=== PATIENT | male | born 1990 | race African-American/Black ===

== ENCOUNTER 2019-03-22 18:14 | Emergency (ER) | payer MEDICAID ==
[~2019-03-22] VITALS: Ht 170.2 cm; Wt 81.6 kg
[2019-03-22] MEDS ORDERED: ALBUTEROL2.5 MG/3 M INH (18:22)
[2019-03-22 18:41] VITALS: BP 118/74
[2019-03-22] MEDS ORDERED: PENICILLIN V P500 MG PO (18:52)
--- NOTE | 2019-03-22 18:52 | Emergency Room Report ---
History of Present Illness General Chief Complaint: Toothache Source: Patient Present Illness HPI 28-year-old male presents with left tooth pain, bottom back molar aggravated with eating alleviated with rest, severity is mild, patient has any fevers chills, he states he has not seen a dentist, he states he smokes as well patient presents for evaluation Allergies: Coded Allergies: No Known Allergies (Unverified , 03/22/19) Patient History Past Medical History: see triage record Social History: Reports: smoking Reviewed Nursing Documentation: PMH: Agreed; PSxH: Agreed Nursing Documentation-PMH Hx Asthma: Yes Review of Systems All Other Systems: negative except mentioned in HPI Physical Exam Vital Signs Date Time Temp Pulse Resp B/P (MAP) Pulse Ox O2 Delivery O2 Flow Rate FiO2 03/22/19 18:19 99.1 99 16 118/74 (89) 96 Room Air General Appearance: well appearing, no apparent distress Head: normocephalic, atraumatic Eyes: bilateral eye PERRL, bilateral eye EOMI ENT: hearing grossly normal, normal voice, moist mucus membranes, other - Left back molar, possibly infected, mild swelling around the gum, patient with poor dentition, no focal abscess Neck: full range of motion, supple Respiratory: no respiratory distress, speaking full sentences Neurologic: alert, normal gait Psychiatric: mood/affect normal Skin: no rash Medical Decision Making Diagnostic Impression: Primary Impression: Dental caries ER Course 28-year-old male presents with left molar pain, differential diagnosis includes abscess, dental carry, gingivitis Counseled patient that he needs to follow-up with a dentist, will start antibiotics here disposition home with return precautions Last Vital Signs Date Time Temp Pulse Resp B/P (MAP) Pulse Ox O2 Delivery O2 Flow Rate FiO2 03/22/19 18:41 99.1 16 118/74 96 Room Air 03/22/19 18:19 99 Disposition: HOME, SELF-CARE Condition: Stable Scripts Penicillin V Potassium* (PENVK*) 500 Mg Tablet 500 MG PO Q6H, #28 TAB 0 Refills Prov: Jose Ramon Vaz MD 03/22/19 Referrals: [facility] Patient Instructions: Dental Care and Dentist Visits, Dental Caries, Easy-to- Read Additional Instructions: The patient was provided with discharge instructions, notified to follow-up with a primary care doctor and or specialist in the next 24-48 hours, and to return to the ED if they have worsening of their symptoms. Please note that this report is being documented using [employer] technology. This can lead to erroneous entry secondary to incorrect interpretation by the dictating instrument. FOLLOW-UP WITH DENTIST Jose Ramon Zarate MD Mar 22, 2019 18:52
[2019-03-22 19:00] VITALS: BP 118/74
== END 2019-03-22 19:00 | disposition home or self-care (01) ==
LOC: EMR 19:00
DX: K02.9 Dental caries, unspecified (principal); J45.909 Unspecified asthma, uncomplicated
CPT/HCPCS: 99282

== ENCOUNTER 2019-05-01 20:25 | Emergency (ER) | payer MEDICAID ==
[~2019-05-01] VITALS: Ht 170.2 cm; Wt 90.7 kg
[~2019-05-01 20:25] MED LIST: ALBUTEROL2.5 MG/3 M INH; PENICILLIN V P500 MG PO
[2019-05-01 20:33] VITALS: BP 140/60
--- NOTE | 2019-05-01 20:33 | NUR ---
ED Nurse Note: pt walked in to ED for C/o sore throat x 1 week with productive cough with brownish sputum.
[2019-05-01] MEDS ORDERED: PREDNISONE20 MG ORAL (21:08)
[2019-05-01] MEDS ORDERED: IBUPROFEN600 MG ORAL (21:08)
[2019-05-01] MEDS ORDERED: ZITHROMAX250 MG ORAL (21:08)
--- NOTE | 2019-05-01 21:08 | Emergency Room Report ---
History of Present Illness General Chief Complaint: Sore Throat Source: Patient Present Illness HPI Is a 28-year-old male with a history of asthma. He is also a smoker. He presents with complaint of cough and sore throat. Onset for about a week now. No nausea no vomiting. No fever or chills. Worse with coughing. Coughing up of a greenish phlegm. No nausea no vomiting. Pain is 8 out of 10. Been using his inhaler more. Allergies: Coded Allergies: No Known Allergies (Unverified , 03/22/19) Patient History Past Medical History: see triage record, old chart reviewed, asthma Past Surgical History: none Pertinent Family History: none Social History: Reports: smoking Immunizations: other Reviewed Nursing Documentation: PMH: Agreed; PSxH: Agreed Nursing Documentation-PMH Past Medical History: No History, Except For Hx Asthma: Yes Review of Systems Eye: Denies: eye pain, blurred vision ENT: Reports: throat pain; Denies: ear pain, nose congestion, throat swelling Respiratory: Reports: cough, shortness of breath Cardiovascular: Denies: chest pain, palpitations Gastrointestinal: Denies: abdominal pain, diarrhea, nausea, vomiting Musculoskeletal: Denies: back pain, joint pain Skin: Denies: rash Neurological: Denies: headache, numbness Endocrine: Denies: increased thirst, increased urine Hematologic/Lymphatic: Denies: easy bruising All Other Systems: negative except mentioned in HPI Physical Exam Vital Signs Date Time Temp Pulse Resp B/P (MAP) Pulse Ox O2 Delivery O2 Flow Rate FiO2 05/01/19 20:31 98.8 84 16 139/53 (81) 94 Room Air Vitals normal Sp02 EP Interpretation: reviewed, normal General Appearance: well appearing, no apparent distress, alert Head: normocephalic, atraumatic Eyes: bilateral eye PERRL, bilateral eye EOMI ENT: hearing grossly normal, tonsillar swelling, pharyngeal erythema Neck: full range of motion, supple, no meningismus Respiratory: chest non-tender, lungs clear, normal breath sounds Cardiovascular #1: regular rate, rhythm, no murmur Gastrointestinal: normal bowel sounds, non tender, no mass, no organomegaly, no bruit, non-distended Musculoskeletal: back normal, normal range of motion, gait/station normal Psychiatric: mood/affect normal Medical Decision Making Diagnostic Impression: Primary Impression: Pharyngitis, acute Qualified Codes: J02.9 - Acute pharyngitis, unspecified Additional Impression: Asthma Qualified Codes: J45.20 - Mild intermittent asthma, uncomplicated ER Course Patient with a pharyngitis. Most likely viral in nature. No evidence of peritonsillar abscess, retropharyngeal abscess or Miguelito angina. Will discharge home. Last Vital Signs Date Time Temp Pulse Resp B/P (MAP) Pulse Ox O2 Delivery O2 Flow Rate FiO2 05/01/19 20:33 98.8 84 17 140/60 96 Room Air Status: unchanged Disposition: HOME, SELF-CARE Condition: Stable Scripts Prednisone* (PREDNISONE*) 20 Mg Tablet 40 MG ORAL DAILY, #10 TAB Prov: Shreyas Cardona MD 05/01/19 Azithromycin* (ZITHROMAX*) 250 Mg Tablet 250 MG ORAL DAILY, #6 TAB 0 Refills Take two tables once daily for 1 day, then one tablet once daily for 4 days. Prov: Shreyas Cardona MD 05/01/19 Ibuprofen* (MOTRIN*) 600 Mg Tablet 600 MG ORAL THREE TIMES A DAY, #30 TAB 0 Refills Prov: Shreyas Cardona MD 05/01/19 Patient Instructions: Sore Throat Additional Instructions: Increase fluids. Salt water gargle. Follow-up with your doctor in 7 days. Return if worse. Shreyas Cardona MD May 01, 2019 21:08
[2019-05-01 21:11] VITALS: BP 132/70
--- NOTE | 2019-05-01 21:11 | NUR ---
ER DISCHARGE NOTE: Patient is cleared to be discharged per ERMD, pt is aox4, on room air, with stable vital signs. pt was given dc and prescription instructions, pt was able to verbalize understanding, pt id band removed without complications. pt is able to ambulate with steady gait. pt took all belongings.
== END 2019-05-01 21:11 | disposition home or self-care (01) ==
LOC: EMR 21:04
DX: J02.9 Acute pharyngitis, unspecified (principal); J45.20 Mild intermittent asthma, uncomplicated; F17.200 Nicotine dependence, unspecified, uncomplicated
CPT/HCPCS: 99282